=== PATIENT | female | born 1980 | race Caucasian/White ===

== ENCOUNTER 2017-12-20 10:20 | Outpatient (CLI) | payer OTHER | END 2017-12-20 10:21 | disposition home or self-care (01) | LOC: SC 10:20 | PROVIDERS: ATTEND Nurse Practitioner Family | DX: G47.33 Obstructive sleep apnea (adult) (pediatric) (principal); G47.23 Circadian rhythm sleep disorder, irregular sleep wake type | CPT/HCPCS: 99212; 99214 ==

== ENCOUNTER 2018-01-22 10:47 | Outpatient (CLI) | payer OTHER | END 2018-01-22 10:48 | disposition home or self-care (01) | LOC: SC 10:47 | PROVIDERS: ATTEND Nurse Practitioner Family | DX: G47.33 Obstructive sleep apnea (adult) (pediatric) (principal) | CPT/HCPCS: 99212; 99214 ==

== ENCOUNTER 2018-04-12 09:47 | Outpatient (CLI) | payer OTHER | END 2018-04-12 09:48 | disposition home or self-care (01) | LOC: SC 09:47 | PROVIDERS: ATTEND Nurse Practitioner Family | DX: G47.33 Obstructive sleep apnea (adult) (pediatric) (principal) | CPT/HCPCS: 99212; 99214 ==

== ENCOUNTER 2018-07-02 09:51 | Outpatient (CLI) | payer OTHER | END 2018-07-02 09:52 | disposition home or self-care (01) | LOC: SC 09:51 | PROVIDERS: ATTEND Nurse Practitioner Family | DX: G47.33 Obstructive sleep apnea (adult) (pediatric) (principal) | CPT/HCPCS: 99212; 99214 ==

== ENCOUNTER 2018-10-18 11:20 | Outpatient (CLI) | payer OTHER | END 2018-10-18 11:21 | disposition home or self-care (01) | LOC: SC 11:20 | PROVIDERS: ATTEND Nurse Practitioner Family | DX: G47.33 Obstructive sleep apnea (adult) (pediatric) (principal) | CPT/HCPCS: 99212; 99214 ==

== ENCOUNTER 2018-12-21 20:12 | Emergency (ER) | payer OTHER ==
[2018-12-21 20:25] VITALS: BP 134/89
[2018-12-21] MEDS ORDERED: NITROFURANTOIN MACRO 100 MG CAPSULE PO STA (20:29)
[2018-12-21] MEDS ORDERED: PHENAZOPYRIDINE 100 MG TABLET PO STA (20:29)
[2018-12-21 20:30] LABS: BILIRUBIN,URINE NEGATIVE (NEGATIVE); GLUCOSE, URINE (UA) NEGATIVE (NEGATIVE); KETONES,URINE (UA) TRACE mg/dL (NEGATIVE); LEUKOCYTE ESTERASE, URINE MODERATE (NEGATIVE); NITRITE,URINE POSITIVE (NEGATIVE); OCCULT BLOOD,URINE LARGE (NEGATIVE); PROTEIN,URINE 30 mg/dL (NEGATIVE); UROBILINOGEN,URINE 0.2 (NORMAL) E.U./dL (NORMAL)
--- NOTE | 2018-12-21 20:30 | ED Physician Documentation ---
PD HPI FEMALE - Stated complaint Stated Complaint: FEMALE - Chief complaint Chief Complaint: UTI - History obtained from History obtained from: Patient - History of Present Illness Timing - onset: Other (Over the last few hours she is developed urinary frequency and dysuria without flank pain or nausea.) Review of Systems Constitutional: denies: Fever, Chills GI: denies: Abdominal Pain, Nausea, Vomiting, Constipation, Diarrhea : reports: Dysuria, Frequency PD PAST MEDICAL HISTORY - Present Medications Home Medications: Ambulatory Orders Medication Instructions Recorded Confirmed Cholecalciferol (Vitamin D3) 1,000 unit PO 12/21/18 [Vitamin D3] Clonidine HCl [Catapres] 0.3 mg PO 12/21/18 Levothyroxine [Synthroid] 25 mcg PO QDAC 12/21/18 12/21/18 Lisdexamfetamine Dimesylate 40 mg PO 12/21/18 12/21/18 [Vyvanse] Loratadine [Claritin] 10 mg PO 12/21/18 Nitrofurantoin Monohyd/M-Cryst 100 mg PO BID #10 capsule 12/21/18 [Macrobid 100 mg Capsule] Phenazopyridine HCl [Pyridium] 200 mg PO TID PRN #6 tablet 12/21/18 Sertraline [Zoloft] 25 mg PO DAILY 12/21/18 12/21/18 buPROPion [Wellbutrin Xl] 150 mg PO DAILY 12/21/18 12/21/18 - Allergies Allergies/Adverse Reactions: Allergies Allergy/AdvReac Type Severity Reaction Status Date / Time No Known Drug Allergies Allergy Verified 12/21/18 20:17 PD ED PE NORMAL - Vitals Vital signs reviewed: Yes - General General: Alert and oriented X 3, No acute distress - Abdomen Abdomen: Soft, Non tender - Back Back: No CVA TTP, No spinal TTP - Neuro Neuro: Alert and oriented X 3, Normal speech Results - Vitals Vitals: Vital Signs - 24 hr 12/21/18 20:14 Temperature 36 C L Heart Rate 90 Respiratory 18 Rate Blood Pressure 134/89 H O2 Saturation 98 Oxygen O2 Source Room air - Labs Labs: Laboratory Tests 12/21/18 12/21/18 20:21 20:21 Urine Color DARK YELLOW Urine Clarity CLOUDY Urine pH 6.0 Ur Specific [place] 1.025 1.025 Urine Protein 30 H Urine Glucose (UA) NEGATIVE Urine Ketones TRACE Urine Occult Blood LARGE H Urine Nitrite POSITIVE H Urine Bilirubin NEGATIVE Urine Urobilinogen 0.2 (NORMAL) Ur Leukocyte Esterase MODERATE H Urine RBC TNTC H Urine WBC >25 H Ur Squamous Epith Cells RARE Squamous Urine Bacteria None Seen Ur Microscopic Review INDICATED Urine Culture Comments INDICATED Urine HCG, Qual NEGATIVE Departure - Departure Disposition: Home, Self Care Clinical Impression: Cystitis Condition: Good Record reviewed to determine appropriate education?: Yes Instructions: ED UTI Cystitis Female Prescriptions: Nitrofurantoin Monohyd/M-Cryst [Macrobid 100 mg Capsule] 100 mg PO BID #10 capsule Phenazopyridine HCl [Pyridium] 200 mg PO TID PRN #6 tablet PRN Reason: dysuria Comments: We will culture your urine, the results should be done in 48-72 hours. If an antibiotic change is necessary we will call you. Return if worse in the meantime, especially if you develop increasing flank pain, fevers, or cannot keep down the medication. Discharge Date/Time: 12/21/18 20:50
[2018-12-21 20:32] LABS: CLARITY,URINE CLOUDY (CLEAR); HCG UR QUAL NEGATIVE
[2018-12-21 20:40] LABS: BACTERIA,URINE None Seen /HPF (None Seen); RBC,URINE TNTC /HPF (0-5); SQUAMOUS EPITHELIAL CELL,UR RARE Squamous (<= Few)
== END 2018-12-21 20:50 | disposition home or self-care (01) ==
LOC: ED 20:12
DX: N30.90 Cystitis, unspecified without hematuria (principal)
CPT/HCPCS: 81001; 81025; 87086; 87181; 99283; A9270; 81003

== ENCOUNTER 2019-04-17 16:23 | Outpatient (CLI) | payer OTHER ==
[2019-04-17 17:36] VITALS: BP 124/80
--- NOTE | 2019-04-17 17:36 | SLEEP CARE CONSULTATION ---
Information from patient questionnaire entered by Mayra Fuentes. I have reviewed and concur with the information entered by Mayra Fuentes. This document represents the service I personally performed and the decisions made by me, Viji Brooks, RN, MSN, DIRECTOR OF INSTRUCTION. History of Present Illness Previous diagnosis: Moderate, Other (RDI) Reason for follow up: six month Equipment type: CPAP Equipment obtained from: [facility] Mask style: Full face Mask brand: Resmed Backup mask available: Yes Last cushion change: month HPI additional information: The pressure was increased for snoring with resolution noted. CPAP Compliance Data - Data Reviewed with Patient Average duration of nightly device use: 8.45 Compliance rate %: 88.9 (180 days) Current pressure setting (cmH2O): 8-10 Humidity settin Heated hose settin Average residual AHI: 1.1 Average large leak: 14 sec Subjective Missed days of use due to: reports: other (forgot to replace data card in device. ) Patient concerns: reports: mask leak noise (only when mask wearing out ), other (auto on not working, air warmth getting too cool. ). denies: aerophagia, mask discomfort, air blowing in eyes, condensation in mask/hose, nasal congestion, dry mouth, nose, throat, epistaxis Observed to snore while using device: No (none since pressure changed ) Current pressure setting perceived as: comfortable On therapy, patient: reports: sleeping better, awakening more refreshed, being more awake and alert during the day, more rested overall. denies: drowsiness while driving Initial Jenners Sleepiness Scale score: 7 Current Jenners Sleepiness Scale score: 5 Allergies and Home Medications Known drug allergies: Yes Home medication list reviewed: Yes (see list of changes ) Allergy and home medication list: bupropion 150mg daily sertraline 25mg daily loratadine 10mg daily lisdexamfetamine Dimesylate 40mg daily levothyroxine 75mcg daily clonidine o.3mg daily Vitamin D 100mg daily omeprazole 40mg daily Review of Systems Review of systems same as previous: Yes Physical Exam Blood Pressure: 124/80 Cuff size: long Heart Rate: 90 O2 Saturation: 98 Height: 5 ft 4.5 in Weight: 256 lb 6.4 oz Weight change since last visit: gained 4 pounds Body Mass Index: 43.3 BMI Classification: Obesity Class 3 Impression and Plan 1. Obstructive Sleep Apnea-Hypopnea Syndrome, moderate, with good treatment compliance and good apnea control. On CPAP therapy, the patient has better sleep quality and is more rested overall. To increase air warmth, I showed her how to adjust heated hose setting on sample device. Printed instructions given with rationale written for changing settings. I also ordered her auto on to be turned on for patient convenience in starting therapy. Patient has regained weight and wondered if apnea still well controlled as initially gained weight when first diagnosed. I showed her compliance showing good control of her apnea. Currently patients BMI is 42.2 obesity class. Obesity increases the risk of apnea, CPAP pressure requirements and overall health risks especially cardiovascular and diabetes. Thus patient is advised to lose weight. Weight loss can be done with reducing portion size, refined foods and balancing content with vegetables, fruit and protein. A diet consultation can be helpful in achieving optimal weight loss goals. The BMI chart was reviewed. The patient would like to reduce to 175 pounds bringing their BMI down to 29. Patient encouraged to discuss their weight loss goals with their PCP and consider a referral to a auto damage trainee. She just joined weight watchers. I also discussed how slowly losing weight will assist her to maintain lose as habits are formed. Also eating slowly also helps and having small weight loss goals to build to optimal goal. As she loses weight, her apnea risk and CPAP pressure needs could reduce. Symptoms to report for additional pressure adjustment discussed. Patient's apnea severity and rationale for treatment to reduce apnea, improve sleep quality and reduce cardiovascular and cerebrovascular events was reviewed. I also reviewed the benefit of consistent device use of CPAP for depression/anxiety. Patient is still planning on moving to [place]. I again reviewed process of transfer to new sleep provider if needed prior to her annual follow up. Concerns about her daughters fatigue were directed to follow up with her PCP. * Continue CPAP pressure at 8-10 cmH2O * Adjust heated hose. * Turn auto on - on * Notify me if snoring with mask or feeling that the pressure is too much or too little * Attempt to lose weight * Call this office if any problems using CPAP * Return for follow up in 1 year , or sooner if concerns arise Time Spent with Patient (minutes): 35 I spent 100% of this visit face to face with the patient with greater than 50% of this was spent time counseling the patient and coordination of care.
== END 2019-04-17 16:24 | disposition home or self-care (01) ==
LOC: SC 16:23
PROVIDERS: ATTEND Nurse Practitioner Family
DX: G47.33 Obstructive sleep apnea (adult) (pediatric) (principal); E66.9 Obesity, unspecified; Z68.41 Body mass index [BMI] 40.0-44.9, adult
CPT/HCPCS: 99212; 99214